=== PATIENT | male | born 1990 | race African-American/Black ===

== ENCOUNTER 2017-03-07 22:39 | Emergency (ER) | payer SELFPAY ==
[~2017-03-07] VITALS: Ht 188 cm; Wt 81.8 kg
[2017-03-07 22:41] VITALS: BP 142/87; TEMP 98.3
[2017-03-07 23:53] VITALS: PULSE 84
== END 2017-03-07 23:53 | disposition home or self-care (01) ==
LOC: COL.ER 22:39
DX: S05.02XA Injury of conjunctiva and corneal abrasion without foreign body, left eye, initial encounter (principal); W01.198A Fall on same level from slipping, tripping and stumbling with subsequent striking against other object, initial encounter; Y92.410 Unspecified street and highway as the place of occurrence of the external cause; Y93.01 Activity, walking, marching and hiking